=== PATIENT | male | born 1960 | race Caucasian/White ===

== ENCOUNTER 2018-05-31 11:38 | Inpatient (IN) | payer OTHER ==
[~2018-05-31] VITALS: Ht 177.8 cm; Wt 131.8 kg
--- NOTE | ~2018-05-31 | MORECARE ---
CASE MANAGEMENT DISCHARGE SUMMARY PATIENT: JA CARCAMO UNIT: [id number] ADM DATE: 05/31/18 AGE: 57 : 64 SEX: M ROOM/BED: D.2216 AUTHOR: NOELLE VALDEZ PHYSICIAN: REFERRING PHYSICIAN: NANDINI ACUNA MD DATE OF SERVICE: 06/01/18 Discharge Plan Patient Name: JA CARCAMO Facility: [facility]:[place] : 1960 Planned Disposition: Home Anticipated Discharge Date: Discharge Date: Expected LOS: Initial Reviewer: [email or web address] Initial Review Date: 06/01/2018 Generated: 06/01/18 12:11 pm Comments DCP- Discharge Planning Updated by [email or web address]: Brittanie Mitchell on 06/01/18 10:[address] Patient Name: JA CARCAMO Admission Status: Elective Accout number: [id number] Admission Date: 05-31-2018 : 1960 Admission Diagnosis:CELLULITIS OF LEFT FINGER Attending: NANDINI ACUNA Current LOS: 1 Anticipated DC Date: Planned Disposition: Home Primary Insurance: [facility] [employer] Discharge Planning Comments: CM met with patient to assess discharge planning needs. Patient stated that he lives home alone independently & plans to return there at discharge. He does not have a PCP. His PCP is in [place]. He stated that he will drive himself home when he is discharged. He does not want Home Health services and stated that his home is safe to return when the time come. CM will continue to follow and assist with DC planning Mold Sprayer: Brittanie Mitchell DCPIA - Discharge Planning Initial Assessment Updated by [email or web address]: Brittanie Mitchell on 06/01/18 10:59 am * Is the patient Alert and Oriented? Yes * How many steps to enter\exit or inside your home? * PCP from [place] * Pharmacy [facility] * Preadmission Environment Home Alone * ADLs Independent * Equipment None * List name and contact numbers for known caregivers / representatives who currently or will assist patient after discharge: GURINDER ([phone]) * Verbal permission to speak to the caregivers and representatives has been obtained from the patient. N/A * Community resources currently utilized None * Additional services required to return to the preadmission environment? No * Can the patient safely return to the preadmission environment? Yes * Has this patient been hospitalized within the prior 30 days at any hospital? No Last DP export: 06/01/18 10:01 a Patient Name: JA CARCAMO Page 41980 at 1111 All edits/amendments must be made on the electronic document DICTATION DATE: 06/01/18 1111 TRUCK ASSEMBLER: MARIO 06/01/18 1111 RPT#: [id number] DC DATE: STATUS: ADM IN [facility] [address] [place] [address] END OF REPORT
--- NOTE | ~2018-05-31 | MORECARE ---
CASE MANAGEMENT DISCHARGE SUMMARY PATIENT: JA CARCAMO UNIT: [id number] ADM DATE: 05/31/18 AGE: 57 : 64 SEX: M ROOM/BED: D.2216 AUTHOR: NOELLE VALDEZ PHYSICIAN: REFERRING PHYSICIAN: NANDINI ACUNA MD DATE OF SERVICE: 06/05/18 Discharge Plan Patient Name: JA CARCAMO Facility: [facility]:[place] : 1960 Planned Disposition: Home Anticipated Discharge Date: Discharge Date: 06/02/2018 Expected LOS: 0 Initial Reviewer: [email or web address] Initial Review Date: 06/01/2018 Generated: 06/05/18 12:16 pm Comments DCP- Discharge Planning Updated by [email or web address]: Brittanie Mitchell on 06/01/18 11:[address] Patient Name: JA CARCAMO Admission Status: Elective Accout number: [id number] Admission Date: 05-31-2018 : 1960 Admission Diagnosis:CELLULITIS OF LEFT FINGER Attending: NANDINI ACUNA Current LOS: 1 Anticipated DC Date: Planned Disposition: Home Primary Insurance: [facility] [employer] Discharge Planning Comments: CM met with patient to assess discharge planning needs. Patient stated that he lives home alone independently & plans to return there at discharge. He does not have a PCP. His PCP is in [place]. He stated that he will drive himself home when he is discharged. He does not want Home Health services and stated that his home is safe to return when the time come. CM will continue to follow and assist with DC planning Building Wrecker: Brittanie Mitchell DCPIA - Discharge Planning Initial Assessment Updated by [email or web address]: Brittanie Mitchell on 06/01/18 10:59 am * Is the patient Alert and Oriented? Yes * How many steps to enter\exit or inside your home? * PCP from [place] * Pharmacy [facility] * Preadmission Environment Home Alone * ADLs Independent * Equipment None * List name and contact numbers for known caregivers / representatives who currently or will assist patient after discharge: GURINDER ([phone]) * Verbal permission to speak to the caregivers and representatives has been obtained from the patient. N/A * Community resources currently utilized None * Additional services required to return to the preadmission environment? No * Can the patient safely return to the preadmission environment? Yes * Has this patient been hospitalized within the prior 30 days at any hospital? No Last DP export: 06/01/18 11:11 a Patient Name: JA CARCAMO Page 31454 at 1116 All edits/amendments must be made on the electronic document DICTATION DATE: 06/05/181114 BRASS CLEANER: MARIO 06/05/181114 RPT#: [id number] DC DATE:06/02/18 STATUS: DIS IN [facility] [address] [place] [address] END OF REPORT
--- NOTE | ~2018-05-31 | MORECARE ---
CASE MANAGEMENT DISCHARGE SUMMARY PATIENT: JA CARCAMO UNIT: [id number] ADM DATE: 05/31/18 AGE: 57 : 64 SEX: M ROOM/BED: D.2216 AUTHOR: NOELLE VALDEZ PHYSICIAN: REFERRING PHYSICIAN: NANDINI ACUNA MD DATE OF SERVICE: 06/01/18 Discharge Plan Patient Name: JA CARCAMO [facility] 1960 Planned Disposition: Home Anticipated Discharge Date: Discharge Date: Expected LOS: Initial Reviewer: [email or web address] Initial Review Date: 06/01/2018 Generated: 06/01/18 12:01 pm DCPIA - Discharge Planning Initial Assessment Updated by [email or web address]: Brittanie Mitchell on 06/01/18 10:59 am * Is the patient Alert and Oriented? Yes * How many steps to enter\exit or inside your home? * PCP from [place] * Pharmacy [facility] * Preadmission Environment Home Alone * ADLs Independent * Equipment None * List name and contact numbers for known caregivers / representatives who currently or will assist patient after discharge: GURINDER ([phone]) * Verbal permission to speak to the caregivers and representatives has been obtained from the patient. N/A * Community resources currently utilized None * Additional services required to return to the preadmission environment? No * Can the patient safely return to the preadmission environment? Yes * Has this patient been hospitalized within the prior 30 days at any hospital? No Patient Name: JA CARCAMO Page 64022 at 1101 All edits/amendments must be made on the electronic document DICTATION DATE: 06/01/18 1100 IRISH MOSS BLEACHER: MARIO 06/01/18 1100 RPT#: [id number] DC DATE: STATUS: ADM IN [facility] [address] [place] [address] END OF REPORT
[2018-05-31] MEDS ORDERED: PRINIVIL20 MG PO (12:46)
[2018-05-31] MEDS ORDERED: PROZAC40 MG PO (12:47)
[2018-05-31] MEDS ORDERED: RIOMET500 MG/5 M PO (12:48)
[2018-05-31] MEDS ORDERED: LIPITOR40 MG PO (12:49)
[2018-05-31 13:04] VITALS: BP 155/102
[2018-05-31 13:27] LABS: HEMATOCRIT 45.5 % (42.0-54.0); HEMOGLOBIN 15.9 g/dL (13.5-17.5); MCH 31.7 pg (26.0-34.0); MCHC 34.9 g/dL (31.0-37.0); MCV 90.8 fL (80.0-100.0); MEAN PLATELET VOLUME 12.2 fL (7.4-10.4); RBC 5.01 10x6/uL (4.20-6.10); RDW 13.3 % (11.5-14.5)
[2018-05-31 13:41] LABS: CALC OSMOLALITY 283 mosm/kg (275-300); CARBON DIOXIDE 23.7 mmol/L (21.0-32.0); CHLORIDE - SERUM 103 mmol/L (98-107); CREATININE - SERUM 0.9 mg/dL (0.6-1.3); GLUCOSE 166 mg/dL (74-106); SODIUM 139 mmol/L (136-145); UREA NITROGEN 19 mg/dL (7-18); eGFR NON AFRICAN AMERICAN > 90 mL/min (90-120)
[2018-05-31 13:42] LABS: POTASSIUM - SERUM 4.3 mmol/L (3.5-5.1)
[2018-05-31 16:01] VITALS: BP 145/94
[2018-05-31 16:18] LABS: BASOPHILS 0.2 % (0-2); EOSINOPHILS 1.5 % (0-7); HEMATOCRIT 44.2 % (42.0-54.0); HEMOGLOBIN 15.4 g/dL (13.5-17.5); IMMATURE GRANULOCYTES 0.2 % (0-5); LYMPHOCYTES 29.5 % (15-50); MCHC 34.8 g/dL (31.0-37.0); MCV 91.7 fL (80.0-100.0); MONOCYTES 7.3 % (2-11); NEUTROPHILS 61.3 % (40-80); PLATELET COUNT 118 10x3/uL (130-400); RBC 4.82 10x6/uL (4.20-6.10); RDW 13.2 % (11.5-14.5); WBC 5.2 10x3/uL (4.8-10.8)
[2018-05-31 19:28] VITALS: BP 145/94; BMI 41.6
[2018-05-31 21:26] VITALS: BP 142/89
[2018-06-01 05:11] VITALS: BP 131/85
[2018-06-01 08:47] VITALS: BP 159/86
[2018-06-01 12:46] VITALS: BP 151/89
[2018-06-01 16:27] VITALS: BP 158/90
[2018-06-01 19:16] VITALS: Ht 177.8 cm; Wt 131.8 kg
[2018-06-01 21:18] VITALS: BP 150/78
[2018-06-02 04:29] VITALS: BP 146/84
[2018-06-02 09:17] VITALS: BP 158/102
[2018-06-02] MEDS ORDERED: CIPRO500 MG PO (09:55)
[2018-06-02] MEDS ORDERED: ADOXA100 MG PO (09:56)
[2018-06-09 17:09] LABS: AEROBE ID Final report (())
[2018-06-10 18:07] LABS: AEROBE ID Final report (())
== END 2018-06-02 10:48 | disposition home or self-care (01) | DRG 603 ==
LOC: D.OPS 11:38 → D.MS 15:40 → D.OPS 15:41 → D.MS 23:58
PROVIDERS: Anesthesiology; Orthopaedic Surgery
PROC: 0HTQXZZ Resection of Finger Nail, External Approach (ICD-10-PCS; 2018-05-31)
PROC: 0H9QX0Z Drainage of Finger Nail with Drainage Device, External Approach (ICD-10-PCS; principal; 2018-05-31 12:00)
DX: L03.012 Cellulitis of left finger (principal); E11.9 Type 2 diabetes mellitus without complications; I10 Essential (primary) hypertension; Z87.891 Personal history of nicotine dependence; Q84.6 Other congenital malformations of nails

== ENCOUNTER → 2018-06-18 16:09 | Outpatient (CLI) | payer OTHER ==
[2018-06-01 19:16] VITALS: BMI 41.6
[~2018-06-18 16:09] MED LIST: ADOXA100 MG PO; AUGMENTIN 875-11 TAB PO; CIPRO500 MG PO; LIPITOR40 MG PO; PRINIVIL20 MG PO; PROZAC40 MG PO; RIOMET500 MG/5 M PO
== END | disposition home or self-care (01) ==
LOC: D.MRI 16:09
DX: M79.645 Pain in left finger(s) (principal)

== ENCOUNTER 2018-06-20 13:28 | Inpatient (IN) | payer OTHER ==
[~2018-06-20] VITALS: Ht 177.8 cm; Wt 131.5 kg
--- NOTE | ~2018-06-20 | MORECARE ---
CASE MANAGEMENT DISCHARGE SUMMARY PATIENT: JA CARCAMO UNIT: [id number] ADM DATE: 06/20/18 AGE: 57 : 64 SEX: M ROOM/BED: D.2214 AUTHOR: NOELLE VALDEZ PHYSICIAN: REFERRING PHYSICIAN: NANDINI ACUNA MD DATE OF SERVICE: 06/29/18 Discharge Plan Patient Name: JA CARCAMO Facility: [facility]:[place] : 1960 Planned Disposition: Home or Self Care Anticipated Discharge Date: Discharge Date: Expected LOS: Initial Reviewer: [email or web address] Initial Review Date: 06/21/2018 Generated: 06/29/18 10:38 am Comments DCP- Discharge Planning Updated by [email or web address]: Brittanie Mitchell on 06/29/18 8:[address] PATIENT WILL BE GOING HOME TODAY, HE WILL NOT NEED HOME HEALTH OR IV ABX. CM WILL ASSIST WITH DC PLANNING NEEDED DCP- Discharge Planning Updated by [email or web address]: Brittanie Mitchell on 06/26/18 2:[address] Patient Name: JA CARCAMO Admission Status: Elective Accout number: [id number] Admission Date: 06-20-2018 : 1960 Admission Diagnosis:CUTANEOUS ABSCESS OF LEFT HAND Attending: NANDINI ACUNA Current LOS: 6 Anticipated DC Date: Planned Disposition: Home or Self Care Primary Insurance: [facility] [employer] Discharge Planning Comments: CM met with patient to assess discharge planning needs. Patient stated that he has just moved here from [place] and that his sister will be the one to take him home when he is discharged. He has a cpap machine, but now in [place] he does not have to use it. He is unsure if he will need home health or IV abx, JAZMÍN signed 1)elite 2) alysa. CM will continue to follow and assist with DC planning as needed Technical Advisor: Brittanie Mitchell DCPIA - Discharge Planning Initial Assessment Updated by [email or web address]: Brittanie Mitchell on 06/26/18 3:32 pm * Is the patient Alert and Oriented? Yes * How many steps to enter\exit or inside your home? * PCP FROM [place] * Pharmacy [address] * Preadmission Environment Home Alone * ADLs Independent * Equipment CPAP * List name and contact numbers for known caregivers / representatives who currently or will assist patient after discharge: GURINDER (SISTER) [phone] * Verbal permission to speak to the caregivers and representatives has been obtained from the patient. N/A * Community resources currently utilized None * Can the patient safely return to the preadmission environment? Yes * Has this patient been hospitalized within the prior 30 days at any hospital? No Last DP export: 06/26/18 2:44 Patient Name: JA CARCAMO Page 16236 at 0938 All edits/amendments must be made on the electronic document DICTATION DATE: 06/29/18937 AIR TRAFFIC CONTROL SUPERVISOR: MARIO 06/29/18937 RPT#: [id number] DC DATE: STATUS: ADM IN [facility] [address] [place] [address] END OF REPORT
--- NOTE | ~2018-06-20 | OP ---
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 2. Hypertension. 3. Diabetes mellitus. 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 2. Hypertension. 3. Diabetes mellitus. PROCEDURE: Left axillary sentinel lymph node biopsy. SURGEON: Svetlana Hacektt MD REPORT OF PROCEDURE: The patient underwent lymphoscintigraphy prior to the procedure. The patient's left upper extremity and axilla were prepped and draped in sterile fashion. Using a Neoprobe, I found the area of increased radiotracer uptake. A skin incision was made on the anterior aspect of the axilla. Through this, I was able to dissect down into the axillary space through the fascia and was able to pull up a small sentinel lymph node. This had a reading of just over 100. I found two sentinel lymph nodes present and both had readings as high. After this, I found no other evidence or any sentinel lymph node tissue. The wound was then irrigated out and reapproximated with interrupted 3-0 Vicryl and the skin was closed with running subcutaneous 5-0 Monocryl. COMPLICATIONS: None. CONDITION: Stable. ANESTHESIA: General endotracheal. BLOOD LOSS: Minimal. TRANSINT:[id number] Voice Confirmation ID: [id number] DOCUMENT ID: [id number] SVETLANA HACKETT MD CC: [id number] DICTATION DATE: 06/28/182005 PR INTERNSHIP: 06/28/18 2306 ADM IN [place] [address] [place] [address]
--- NOTE | ~2018-06-20 | MORECARE ---
CASE MANAGEMENT DISCHARGE SUMMARY PATIENT: JA CARCAMO UNIT: [id number] ADM DATE: 06/20/18 AGE: 57 : 64 SEX: M ROOM/BED: D.2214 AUTHOR: NOELLE VALDEZ PHYSICIAN: REFERRING PHYSICIAN: NANDINI ACUNA MD DATE OF SERVICE: 06/26/18 Discharge Plan Patient Name: JA CARCAMO Facility: [facility]:[place] : 1960 Planned Disposition: Home or Self Care Anticipated Discharge Date: Discharge Date: Expected LOS: Initial Reviewer: [email or web address] Initial Review Date: 06/21/2018 Generated: 06/26/18 4:36 pm DCPIA - Discharge Planning Initial Assessment Updated by [email or web address]: Brittanie Mitchell on 06/26/18 3:32 pm * Is the patient Alert and Oriented? Yes * How many steps to enter\exit or inside your home? * PCP FROM [place] * Pharmacy [address] * Preadmission Environment Home Alone * ADLs Independent * Equipment CPAP * List name and contact numbers for known caregivers / representatives who currently or will assist patient after discharge: GURINDER (SISTER) [phone] * Verbal permission to speak to the caregivers and representatives has been obtained from the patient. N/A * Community resources currently utilized None * Can the patient safely return to the preadmission environment? Yes * Has this patient been hospitalized within the prior 30 days at any hospital? No Patient Name: JA CARCAMO Page 04648 at 1536 All edits/amendments must be made on the electronic document DICTATION DATE: 06/26/18 1536 PROTOTYPE TECHNICIAN: MARIO 06/26/18 1536 RPT#: [id number] DC DATE: STATUS: ADM IN [facility] [address] [place] [address] END OF REPORT
--- NOTE | ~2018-06-20 | MORECARE ---
CASE MANAGEMENT DISCHARGE SUMMARY PATIENT: JA CARCAMO UNIT: [id number] ADM DATE: 06/20/18 AGE: 57 : 64 SEX: M ROOM/BED: D.2214 AUTHOR: NOELLE VALDEZ PHYSICIAN: REFERRING PHYSICIAN: NANDINI ACUNA MD DATE OF SERVICE: 06/26/18 Discharge Plan Patient Name: JA CARCAMO Facility: [facility]:[place] : 1960 Planned Disposition: Home or Self Care Anticipated Discharge Date: Discharge Date: Expected LOS: Initial Reviewer: [email or web address] Initial Review Date: 06/21/2018 Generated: 06/26/18 4:44 pm Comments DCP- Discharge Planning Updated by [email or web address]: Brittanie Mitchell on 06/26/18 2:[address] Patient Name: JA CARCAMO Admission Status: Elective Accout number: [id number] Admission Date: 06-20-2018 : 1960 Admission Diagnosis:CUTANEOUS ABSCESS OF LEFT HAND Attending: NANDINI ACUNA Current LOS: 6 Anticipated DC Date: Planned Disposition: Home or Self Care Primary Insurance: [employer] Discharge Planning Comments: CM met with patient to assess discharge planning needs. Patient stated that he has just moved here from [place] and that his sister will be the one to take him home when he is discharged. He has a cpap machine, but now in [place] he does not have to use it. He is unsure if he will need home health or IV abx, JAZMÍN signed 1)elite 2) alysa. CM will continue to follow and assist with DC planning as needed Bariatric Physician: Brittanie Mitchell DCPIA - Discharge Planning Initial Assessment Updated by [email or web address]: Brittanie Mitchell on 06/26/18 3:32 pm * Is the patient Alert and Oriented? Yes * How many steps to enter\exit or inside your home? * PCP FROM [place] * Pharmacy [facility] [address] * Preadmission Environment Home Alone * ADLs Independent * Equipment CPAP * List name and contact numbers for known caregivers / representatives who currently or will assist patient after discharge: GURINDER (SISTER) [phone] * Verbal permission to speak to the caregivers and representatives has been obtained from the patient. N/A * Community resources currently utilized None * Can the patient safely return to the preadmission environment? Yes * Has this patient been hospitalized within the prior 30 days at any hospital? No Last DP export: 06/26/18 2:36 Patient Name: JA CARCAMO Page 89345 at 1544 All edits/amendments must be made on the electronic document DICTATION DATE: 06/26/181542 PERSONAL TRAINER: MARIO 06/26/181542 RPT#: [id number] DC DATE: STATUS: ADM IN [facility] [address] [place] [address] END OF REPORT
--- NOTE | ~2018-06-20 | MORECARE ---
CASE MANAGEMENT DISCHARGE SUMMARY PATIENT: JA CARCAMO UNIT: [id number] ADM DATE: 06/20/18 AGE: 57 : 64 SEX: M ROOM/BED: D.2214 AUTHOR: NOELLE VALDEZ PHYSICIAN: REFERRING PHYSICIAN: NANDINI ACUNA MD DATE OF SERVICE: 06/29/18 Discharge Plan Patient Name: JA CARCAMO Facility: [facility]:[place] : 1960 Planned Disposition: Home or Self Care Anticipated Discharge Date: Discharge Date: 06/29/2018 Expected LOS: Initial Reviewer: [email or web address] Initial Review Date: 06/21/2018 Generated: 06/29/18 4:01 pm Comments DCP- Discharge Planning Updated by [email or web address]: Brittanie Mitchell on 06/29/18 8:[address] PATIENT WILL BE GOING HOME TODAY, HE WILL NOT NEED HOME HEALTH OR IV ABX. CM WILL ASSIST WITH DC PLANNING NEEDED DCP- Discharge Planning Updated by [email or web address]: Brittanie Mitchell on 06/26/18 2:[address] Patient Name: JA CARCAMO Admission Status: Elective Accout number: [id number] Admission Date: 06-20-2018 : 1960 Admission Diagnosis:CUTANEOUS ABSCESS OF LEFT HAND Attending: NANDINI ACUNA Current LOS: 6 Anticipated DC Date: Planned Disposition: Home or Self Care Primary Insurance: [facility] [employer] Discharge Planning Comments: CM met with patient to assess discharge planning needs. Patient stated that he has just moved here from [place] and that his sister will be the one to take him home when he is discharged. He has a cpap machine, but now in [place] he does not have to use it. He is unsure if he will need home health or IV abx, JAZMÍN signed 1)elite 2) alysa. CM will continue to follow and assist with DC planning as needed Research Librarian: Brittanie Mitchell DCPIA - Discharge Planning Initial Assessment Updated by [email or web address]: Brittanie Mitchell on 06/26/18 3:32 pm * Is the patient Alert and Oriented? Yes * How many steps to enter\exit or inside your home? * PCP FROM [place] * Pharmacy [address] * Preadmission Environment Home Alone * ADLs Independent * Equipment CPAP * List name and contact numbers for known caregivers / representatives who currently or will assist patient after discharge: GURINDER (SISTER) [phone] * Verbal permission to speak to the caregivers and representatives has been obtained from the patient. N/A * Community resources currently utilized None * Can the patient safely return to the preadmission environment? Yes * Has this patient been hospitalized within the prior 30 days at any hospital? No Last DP export: 06/29/18 8:38 Patient Name: JA CARCAMO Page 12607 at 1502 All edits/amendments must be made on the electronic document DICTATION DATE: 06/29/18 1501 ASSISTANT TRACK COACH: MARIO 06/29/18 1501 RPT#: [id number] DC DATE:06/29/18 STATUS: DIS IN [facility] [address] [place] [address] END OF REPORT
[~2018-06-20 13:28] MED LIST changes: -AUGMENTIN 875-11 TAB PO
[2018-06-20 14:38] VITALS: BP 128/84; BMI 41.6
[2018-06-20 17:22] VITALS: BP 131/95
[2018-06-20 19:52] LABS: BASOPHILS 0.2 % (0-2); EOSINOPHILS 0.2 % (0-7); HEMATOCRIT 44.4 % (42.0-54.0); HEMOGLOBIN 15.2 g/dL (13.5-17.5); IMMATURE GRANULOCYTES 0.2 % (0-5); LYMPHOCYTES 10.3 % (15-50); MCH 31.5 pg (26.0-34.0); MCHC 34.2 g/dL (31.0-37.0); MCV 91.9 fL (80.0-100.0); MEAN PLATELET VOLUME 12.6 fL (7.4-10.4); NEUTROPHILS 87.1 % (40-80); PLATELET COUNT 122 10x3/uL (130-400); RBC 4.83 10x6/uL (4.20-6.10); RDW 13.1 % (11.5-14.5); WBC 6.6 10x3/uL (4.8-10.8)
[2018-06-20 20:19] LABS: CALC OSMOLALITY 293 mosm/kg (275-300); CALCIUM 8.5 mg/dL (8.5-10.1); CARBON DIOXIDE 26.9 mmol/L (21.0-32.0); CHLORIDE - SERUM 105 mmol/L (98-107); POTASSIUM - SERUM 4.9 mmol/L (3.5-5.1); SODIUM 139 mmol/L (136-145); UREA NITROGEN 17 mg/dL (7-18); eGFR NON AFRICAN AMERICAN 82 mL/min (90-120)
[2018-06-20 20:20] LABS: GLUCOSE 347 mg/dL (74-106)
[2018-06-21 08:54] VITALS: BP 137/81
[2018-06-21 12:55] VITALS: BP 140/85
[2018-06-21 16:38] VITALS: BP 131/70
[2018-06-21 20:00] VITALS: BP 127/64
[2018-06-21 23:48] VITALS: BP 130/74
[2018-06-22 04:00] VITALS: BP 127/62
[2018-06-22 05:54] LABS: BASOPHILS 0.2 % (0-2); EOSINOPHILS 1.5 % (0-7); HEMATOCRIT 38.2 % (42.0-54.0); HEMOGLOBIN 12.8 g/dL (13.5-17.5); IMMATURE GRANULOCYTES 0.2 % (0-5); LYMPHOCYTES 40.9 % (15-50); MCH 30.8 pg (26.0-34.0); MCHC 33.5 g/dL (31.0-37.0); MCV 91.8 fL (80.0-100.0); MEAN PLATELET VOLUME 12.4 fL (7.4-10.4); MONOCYTES 5.5 % (2-11); NEUTROPHILS 51.7 % (40-80); PLATELET COUNT 112 10x3/uL (130-400); RBC 4.16 10x6/uL (4.20-6.10); WBC 5.5 10x3/uL (4.8-10.8)
[2018-06-22 05:58] LABS: C-REACTIVE PROTEIN 0.4 mg/dL (0.0-0.9); CALCIUM 7.8 mg/dL (8.5-10.1); CARBON DIOXIDE 29.2 mmol/L (21.0-32.0); CHLORIDE - SERUM 107 mmol/L (98-107); CREATININE - SERUM 0.9 mg/dL (0.6-1.3); SODIUM 141 mmol/L (136-145); UREA NITROGEN 20 mg/dL (7-18); eGFR NON AFRICAN AMERICAN > 90 mL/min (90-120)
[2018-06-22 05:59] LABS: CALC OSMOLALITY 291 mosm/kg (275-300); GLUCOSE 235 mg/dL (74-106); POTASSIUM - SERUM 3.8 mmol/L (3.5-5.1)
[2018-06-22 07:15] LABS: ERYTHROCYTE SEDIMENTATION RATE 9 mm/hr (0-20)
[2018-06-22 08:27] VITALS: BP 160/80
[2018-06-22 12:36] VITALS: BP 127/79
[2018-06-22 16:32] VITALS: BP 145/95
[2018-06-22 19:55] VITALS: BP 143/79
[2018-06-23] VITALS: BP 126/72
[2018-06-23 04:00] VITALS: BP 149/85
[2018-06-23 13:06] VITALS: BP 144/85
[2018-06-23 16:00] VITALS: BP 149/91
[2018-06-23 20:30] VITALS: BP 145/67
[2018-06-24 00:30] VITALS: BP 145/55
[2018-06-24 04:30] VITALS: BP 138/76
[2018-06-24 08:35] VITALS: BP 146/84
[2018-06-24 15:05] VITALS: BP 156/83
[2018-06-24 16:06] VITALS: BP 165/93
[2018-06-24 20:00] VITALS: BP 143/80
[2018-06-25] VITALS (8 sets, daily range): BP systolic 145–161; BP diastolic 86–95
[2018-06-26 00:35] VITALS: BP 165/81
[2018-06-26 05:50] LABS: BASOPHILS 0.2 % (0-2); EOSINOPHILS 2.6 % (0-7); HEMATOCRIT 40.4 % (42.0-54.0); IMMATURE GRANULOCYTES 0.2 % (0-5); LYMPHOCYTES 31.5 % (15-50); MCH 31.2 pg (26.0-34.0); MCHC 34.7 g/dL (31.0-37.0); MEAN PLATELET VOLUME 11.3 fL (7.4-10.4); MONOCYTES 7.4 % (2-11); NEUTROPHILS 58.1 % (40-80); PLATELET COUNT 107 10x3/uL (130-400); RBC 4.49 10x6/uL (4.20-6.10); RDW 12.9 % (11.5-14.5)
[2018-06-26 06:20] LABS: C-REACTIVE PROTEIN 0.4 mg/dL (0.0-0.9); CALC OSMOLALITY 288 mosm/kg (275-300); CALCIUM 8.3 mg/dL (8.5-10.1); CARBON DIOXIDE 25.8 mmol/L (21.0-32.0); CHLORIDE - SERUM 106 mmol/L (98-107); GLUCOSE 244 mg/dL (74-106); POTASSIUM - SERUM 3.9 mmol/L (3.5-5.1); SODIUM 141 mmol/L (136-145); UREA NITROGEN 13 mg/dL (7-18); eGFR NON AFRICAN AMERICAN 82 mL/min (90-120)
[2018-06-26 06:35] VITALS: BP 167/89
[2018-06-26 07:19] LABS: ERYTHROCYTE SEDIMENTATION RATE 11 mm/hr (0-20)
[2018-06-26 08:14] VITALS: BP 148/79
[2018-06-26 12:50] VITALS: BP 145/86
[2018-06-26 17:57] VITALS: BP 146/99
[2018-06-26 20:00] VITALS: BP 124/62
[2018-06-27 04:00] VITALS: BP 130/60
[2018-06-27 08:01] VITALS: BP 151/79
[2018-06-27 08:30] VITALS: BP 140/64
[2018-06-28 01:06] VITALS: BP 148/70
[2018-06-28 06:31] VITALS: BP 148/84
[2018-06-28 09:39] VITALS: BP 154/79
[2018-06-28 12:43] VITALS: BP 165/91
[2018-06-28 17:28] VITALS: BP 143/91
[2018-06-28 20:09] VITALS: Ht 177.8 cm; Wt 131.5 kg
[2018-06-28 21:20] VITALS: BP 144/94
[2018-06-29] VITALS: BP 142/91
[2018-06-29 04:00] VITALS: BP 124/64
[2018-06-29 08:30] VITALS: BP 109/54
[2018-06-29] MEDS ORDERED: AUGMENTIN 875-11 TAB PO (09:21)
== END 2018-06-29 10:28 | disposition home or self-care (01) | DRG 829 ==
LOC: D.OPS 13:28 → D.MS 16:51 → D.OPS 16:52 → D.MS 16:53
PROVIDERS: Orthopaedic Surgery; Student in an Organized Health Care Education/Training Program
PROC: 0PBV0ZX Excision of Left Finger Phalanx, Open Approach, Diagnostic (ICD-10-PCS; principal; 2018-06-20 13:30)
PROC: 0J9K0ZZ Drainage of Left Hand Subcutaneous Tissue and Fascia, Open Approach (ICD-10-PCS; 2018-06-20 13:30)
PROC: 0X6R0Z1 Detachment at Left Middle Finger, High, Open Approach (ICD-10-PCS; 2018-06-28)
PROC: 07B60ZX Excision of Left Axillary Lymphatic, Open Approach, Diagnostic (ICD-10-PCS; 2018-06-28)
DX: C76.42 Malignant neoplasm of left upper limb (principal); L02.512 Cutaneous abscess of left hand; B37.0 Candidal stomatitis; M86.9 Osteomyelitis, unspecified; I10 Essential (primary) hypertension; E11.9 Type 2 diabetes mellitus without complications

== ENCOUNTER → 2019-08-20 10:17 | Outpatient (CLI) | payer BC ==
[2018-06-28 20:09] VITALS: BMI 41.6
[~2019-08-20 10:17] MED LIST changes: +AUGMENTIN 875-11 TAB PO
== END | disposition home or self-care (01) ==
LOC: D.CT 10:17
PROVIDERS: ATTEND Internal Medicine Hematology & Oncology
DX: C76.42 Malignant neoplasm of left upper limb (principal)